=== PATIENT | female | born 1990 | race Caucasian/White ===

== ENCOUNTER 2017-09-19 20:14 | Emergency (ER) | payer OTHER ==
[~2017-09-19] VITALS: Ht 157.5 cm; Wt 91.2 kg
[~2017-09-19 20:14] MED LIST: NO MEDS
[2017-09-19 23:16] LABS: HEMOGLOBIN 14.3 G/DL (11.9-15.5); MCH 31.4 PG (29.0-34.0); MCHC 34.9 G/DL (30.0-36.0); MCV 89.9 FL (83-99); PLATELET COUNT 220 K/uL (156-360); RBC DIS.WIDTH-CV 11.6 % (11.8-14.6); RBC DIS.WIDTH-SD 37.6 % (39-53); RED BLOOD COUNT 4.56 M/uL (3.80-5.20); WHITE BLOOD COUNT 8.5 K/uL (4.1-10.2)
[2017-09-19 23:30] LABS: CHLORIDE 107 mEq/L (99-109); POTASSIUM 3.7 mEq/L (3.7-5.4); SODIUM 140 mEq/L (136-147)
[2017-09-19 23:32] LABS: GLUCOSE 93 mg/dL (70-99)
[2017-09-19 23:36] LABS: CREATININE 0.7 mg/dL (0.6-1.3); GFR ESTIMATE (CALCULATED) > 59 mL/min/; UREA NITROGEN (BUN) 10 mg/dL (9-23)
[2017-09-19 23:38] LABS: CREATINE KINASE 87 IU/L (1-294)
[2017-09-20 00:33] LABS: D-DIMER ELISA < 150.00 ng/mLDDU (<230)
[2017-09-20] MEDS ORDERED: MOTRIN800 MG PO (00:37)
[2017-09-20 02:11] VITALS: BP 132/68
[2017-09-20 07:32] LABS: THYROTROPIN (TSH) 3.2 MIU/L (0.4-5.5)
[2017-09-20 10:40] LABS: LYME DISEASE SEROLOGY SCREEN NEGATIVE (NEGATIVE)
== END 2017-09-20 02:11 | disposition home or self-care (01) ==
LOC: EME 20:14
PROVIDERS: Physician Assistant
DX: M72.2 Plantar fascial fibromatosis (principal); R60.0 Localized edema; R20.2 Paresthesia of skin; S99.921A Unspecified injury of right foot, initial encounter; Y93.02 Activity, running; E78.5 Hyperlipidemia, unspecified; Z88.0 Allergy status to penicillin
CPT/HCPCS: 73630; 80048; 82550; 83735; 84443; 85027; 85379; 86618; 93005; 99281; 99283